=== PATIENT | male | born 2000 | race Caucasian/White ===

== ENCOUNTER 2018-01-13 18:27 | Inpatient (IN) | payer BC ==
[~2018-01-13 18:27] MED LIST: ISOVUE-370 76%-LOCM 1 ML ONE
[2018-01-13] MEDS ORDERED: Fentanyl 100 MCG/2 ML VIAL ONE (18:53)
[2018-01-13] MEDS ORDERED: Adacel (T-DAP) 0.5 ML VIAL ONE (18:53)
[2018-01-13] MEDS ORDERED: CEFAZOLIN/Water 2 GM/20 ML SYRINGE SLOW IVP SCH (19:00)
[2018-01-13 19:07] LABS: #Eosinphils 0.1 thou/uL (0.0-0.7); #Lymphocytes 2.7 thou/uL (1.20-3.40); #Monocytes 0.5 thou/uL (0.11-0.59); #Neutrophils 11.7 thou/uL (1.40-6.50); %Basophils 0.1 % (0.0-1.0); %Eosinophils 0.8 % (0.0-10.0); %Monocytes 3.1 % (0.0-4.0); Hemoglobin 14.4 g/dL (14.0-18.0); Mean Corpuscular HGB CONC 35.3 g/dL (32.0-36.0); Mean Corpuscular Hemoglobin 31.5 pg (25.0-35.0); Mean Corpuscular Volume 89.3 fL (78.0-98.0); Mean Platelet Volume 6.9 fL (7.4-10.4); Platelet Count 253 thou/uL (130-400); RBC Distribution Width 11.3 % (11.5-14.5); Red Blood Cell (RBC) Count 4.57 mill/uL (4.00-5.20)
[2018-01-13 19:15] LABS: INR-International Normal Ratio 1.3; PTT 20.6 SEC (22.9-36.1); Prothrombin Time 15.9 SEC (12.0-14.7)
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
[2018-01-13 19:29] LABS: ALT (SGPT) 72 U/L (8-55); AST (SGOT) 94 U/L (10-45); Albumin 4.1 g/dL (3.5-5.0); Alkaline Phosphatase 71 U/L (Less than 750); Anion Gap 13 mmol/L (10-20); BUN (Urea Nitrogen) 14 mg/dL (8.4-21.0); Bilirubin, Total 0.9 mg/dL (0.2-1.2); Calc. Creatinine Clearance 0 mL/min (70-130); Carbon Dioxide 24 mmol/L (22-29); Chloride 109 mmol/L (98-107); Estimated GFR-MDRD Greater than 90; Globulin 2.4 g/dL (2.4-3.5); Glucose 113 mg/dL (70-105); Lipase 57 U/L (8-78); Protein, Total 6.5 g/dL (6.0-8.3); Sodium 142 mmol/L (136-145)
[2018-01-13] MEDS ORDERED: HYDROmorphone 0.5 MG/0.5 ML SYRINGE ONE (19:33)
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
[2018-01-13] MEDS ORDERED: Lidocaine 1% w/Epinephrine 1:100K 20 ML VIAL ONE (20:08)
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
[2018-01-13] MEDS ORDERED: Ondansetron HCl/PF 4 MG/2 ML Vial ONE (20:24)
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
[2018-01-13] MEDS ORDERED: Dextrose 50% Abboject 50 ML SYRINGE SLOW IVP PRN (20:27)
[2018-01-13] MEDS ORDERED: Ondansetron HCl/PF 4 MG/2 ML Vial IVP PRN (20:27)
[2018-01-13] MEDS ORDERED: Dextrose 5% in Water 1,000 ML IV PRN (20:27)
[2018-01-13] MEDS ORDERED: Promethazine HCl 25 MG/ML VIAL IM PRN (20:27)
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
[2018-01-13] MEDS ORDERED: Acetaminophen 1,000 MG in Premix Bag 1 BAG IVPB SCH (21:00)
[2018-01-13 23:35] LABS: Lactic Acid 3.3 mmol/L (0.5-2.2)
[2018-01-14] MEDS: Sodium Chloride 0.9% 1,000 ML IV SCH ×4 (00:12→15:52)
[2018-01-14] MEDS: Morphine 4 MG/ML VIAL SLOW IVP PRN ×5 (00:16→21:30)
[2018-01-14] MEDS: Ketorolac Tromethamine 30 MG/ML VIAL IVP SCH ×4 (00:16→18:06)
[2018-01-14] MEDS: Famotidine/PF 20 mg/2ml Vial SLOW IVP SCH ×3 (00:16→20:46)
[2018-01-14 01:22] VITALS: BMI 21.5
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
[2018-01-14 06:19] LABS: #Lymphocytes 1.4 thou/uL (1.20-3.40); #Monocytes 0.6 thou/uL (0.11-0.59); #Neutrophils 5.6 thou/uL (1.40-6.50); %Basophils 0.1 % (0.0-1.0); %Eosinophils 0.3 % (0.0-10.0); %Lymphocytes 18.4 % (28.0-48.0); %Monocytes 8.1 % (0.0-4.0); %Neutrophils 73.1 % (31.0-61.0); Hemoglobin 11.8 g/dL (14.0-18.0); Mean Corpuscular HGB CONC 35.2 g/dL (32.0-36.0); Mean Corpuscular Hemoglobin 31.4 pg (25.0-35.0); Mean Corpuscular Volume 89.3 fL (78.0-98.0); Mean Platelet Volume 6.9 fL (7.4-10.4); Platelet Count 181 thou/uL (130-400); RBC Distribution Width 11.3 % (11.5-14.5); Red Blood Cell (RBC) Count 3.75 mill/uL (4.00-5.20); White Blood Cell (WBC) Count 7.6 thou/uL (4.8-10.8)
[2018-01-14 06:35] LABS: ALT (SGPT) 57 U/L (8-55); AST (SGOT) 59 U/L (10-45); Albumin 3.4 g/dL (3.5-5.0); Alkaline Phosphatase 49 U/L (Less than 750); Anion Gap 11 mmol/L (10-20); BUN (Urea Nitrogen) 13 mg/dL (8.4-21.0); Calc. Creatinine Clearance 166 mL/min (70-130); Calcium 8.4 mg/dL (7.8-10.44); Carbon Dioxide 23 mmol/L (22-29); Chloride 110 mmol/L (98-107); Estimated GFR-MDRD Greater than 90; Globulin 1.8 g/dL (2.4-3.5); Glucose 101 mg/dL (70-105); Potassium 4.3 mmol/L (3.5-5.1); Protein, Total 5.2 g/dL (6.0-8.3); Sodium 140 mmol/L (136-145)
--- NOTE | 2018-01-14 08:51 | RAD ---
CHEST 1 VIEW: HISTORY: Pneumothorax. Followup. COMPARISON: 01/13/2018. FINDINGS: Cardiac silhouette is magnified by projection. Pulmonary vasculature upper limits of normal. Medias tinum is midline. No lobar consolidation. No pneumothorax is visible. Left clavicular fracture. IMPRESSION: No significant pneumothorax apparent. Stable posttraumatic appearance of the chest. POS: [facility]
[2018-01-14] MEDS ORDERED: CEFAZOLIN/Water 2 GM/20 ML SYRINGE ONE (09:23)
[2018-01-14] MEDS ORDERED: Midazolam HCl 2 mg/2 ml Vial ONE (10:07)
[2018-01-14] MEDS ORDERED: Fentanyl 100 MCG/2 ML VIAL ONE ×3 (10:19→13:21)
[2018-01-14] MEDS ORDERED: CEFAZOLIN/Water 2 GM/20 ML SYRINGE SLOW IVP SCH (11:00)
[2018-01-14] MEDS ORDERED: PROPOFOL 200 MG/20 ML VIAL ONE (13:21)
[2018-01-14] MEDS ORDERED: Ondansetron HCl/PF 4 MG/2 ML Vial ONE (13:21)
[2018-01-14] MEDS ORDERED: Lidocaine 1% PF 5 ML VIAL ONE (13:21)
[2018-01-14] MEDS ORDERED: PHENYLEPHRINE-NS 100 MCG/ML 10 ML SYRINGE ONE (13:21)
[2018-01-14] MEDS ORDERED: Promethazine HCl 25 MG/ML VIAL SLOW IVP PRN (14:27)
[2018-01-14] MEDS ORDERED: Promethazine HCl 25 MG/ML VIAL IM PRN (14:27)
[2018-01-14] MEDS ORDERED: Ondansetron HCl/PF 4 MG/2 ML Vial IVP PRN (14:27)
[2018-01-14] MEDS ORDERED: Meperidine HCl/PF 25 MG/ML VIAL ONE (14:37)
[2018-01-14] MEDS ORDERED: Acetaminophen/Codeine 30-300mg Tablet PO PRN ×2 (15:06)
[2018-01-14] MEDS: CEFAZOLIN/Water 2 GM/20 ML SYRINGE SLOW IVP SCH (18:07)
--- NOTE | 2018-01-14 18:58 | RAD ---
INTRAOPERATIVE IMAGING OF THE LEFT HUMERUS; 8 COMPARISON: 01/13/18 HISTORY: ORIF. FINDINGS: There is postoperative hardware treating the previously noted fractures involving the mid shaft left humerus, the distal left humerus, and the proximal left ulna. There is anatomic alignment of the frac ture sites. IMPRESSION: ORIF as above. POS: [facility]
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
[2018-01-15] MEDS: Ketorolac Tromethamine 30 MG/ML VIAL IVP SCH ×2 (00:11→06:17)
[2018-01-15] MEDS: CEFAZOLIN/Water 2 GM/20 ML SYRINGE SLOW IVP SCH (02:50)
[2018-01-15 05:24] LABS: #Eosinphils 0.1 thou/uL (0.0-0.7); #Lymphocytes 1.3 thou/uL (1.20-3.40); #Monocytes 0.4 thou/uL (0.11-0.59); %Basophils 0.3 % (0.0-1.0); %Eosinophils 1.3 % (0.0-10.0); %Lymphocytes 22.3 % (28.0-48.0); %Monocytes 7.1 % (0.0-4.0); %Neutrophils 69.1 % (31.0-61.0); Hemoglobin 8.7 g/dL (14.0-18.0); Mean Corpuscular HGB CONC 35.5 g/dL (32.0-36.0); Mean Corpuscular Hemoglobin 31.3 pg (25.0-35.0); Mean Corpuscular Volume 88.1 fL (78.0-98.0); Mean Platelet Volume 6.8 fL (7.4-10.4); Platelet Count 134 thou/uL (130-400); RBC Distribution Width 11.1 % (11.5-14.5); Red Blood Cell (RBC) Count 2.77 mill/uL (4.00-5.20); White Blood Cell (WBC) Count 5.8 thou/uL (4.8-10.8)
[2018-01-15] MEDS: Morphine 4 MG/ML VIAL SLOW IVP PRN (07:33)
[2018-01-15] MEDS: Sodium Chloride 0.9% 1,000 ML IV SCH (07:39)
[2018-01-15] MEDS: Famotidine/PF 20 mg/2ml Vial SLOW IVP SCH (08:59)
[2018-01-15] MEDS: Ibuprofen 800 MG TAB PO SCH ×2 (11:39→17:56)
[2018-01-15] MEDS: Acetaminophen 500 MG TAB PO SCH ×4 (11:39→22:10)
[2018-01-15] MEDS: traMADol HCl 50 MG TAB PO PRN (11:39)
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
[2018-01-15] MEDS: Gabapentin 300 MG CAP PO SCH (20:27)
[2018-01-15] MEDS ORDERED: Famotidine 20 MG TAB PO SCH (21:00)
[2018-01-16] MEDS: Ibuprofen 800 MG TAB PO SCH ×3 (02:15→17:25)
[2018-01-16] MEDS: Acetaminophen 500 MG TAB PO SCH ×6 (02:15→22:30)
[2018-01-16] MEDS: Senokot 8.6 MG TAB PO SCH (08:42)
[2018-01-16] MEDS: Docusate 100 MG CAP PO SCH (08:42)
[2018-01-16] MEDS: Gabapentin 300 MG CAP PO SCH ×2 (08:43→20:54)
[2018-01-16] MEDS: traMADol HCl 50 MG TAB PO PRN ×3 (08:44→20:54)
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
[2018-01-16] MEDS: Enoxaparin Sodium 40 MG/0.4 ML SYRINGE SC SCH (09:59)
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
[2018-01-17] MEDS: Acetaminophen 500 MG TAB PO SCH ×6 (02:35→20:55)
[2018-01-17] MEDS: Ibuprofen 800 MG TAB PO SCH ×3 (02:35→18:35)
[2018-01-17 05:57] LABS: #Eosinphils 0.1 thou/uL (0.0-0.7); #Lymphocytes 1.4 thou/uL (1.20-3.40); #Monocytes 0.3 thou/uL (0.11-0.59); #Neutrophils 2.3 thou/uL (1.40-6.50); %Basophils 0.6 % (0.0-1.0); %Eosinophils 2.2 % (0.0-10.0); %Lymphocytes 34.6 % (28.0-48.0); %Monocytes 6.8 % (0.0-4.0); %Neutrophils 55.8 % (31.0-61.0); Hemoglobin 6.9 g/dL (14.0-18.0); Mean Corpuscular HGB CONC 35.6 g/dL (32.0-36.0); Mean Corpuscular Hemoglobin 32.1 pg (25.0-35.0); Mean Corpuscular Volume 90.3 fL (78.0-98.0); Mean Platelet Volume 7.2 fL (7.4-10.4); Platelet Count 137 thou/uL (130-400); RBC Distribution Width 11.5 % (11.5-14.5); Red Blood Cell (RBC) Count 2.15 mill/uL (4.00-5.20); White Blood Cell (WBC) Count 4.1 thou/uL (4.8-10.8)
[2018-01-17] MEDS: Enoxaparin Sodium 40 MG/0.4 ML SYRINGE SC SCH (08:54)
[2018-01-17] MEDS: Senokot 8.6 MG TAB PO SCH (08:55)
[2018-01-17] MEDS: Ascorbic Acid 500 mg Chewable Tablet PO SCH ×2 (08:55→20:55)
[2018-01-17] MEDS: Gabapentin 300 MG CAP PO SCH ×2 (08:56→20:55)
[2018-01-17] MEDS: Docusate 100 MG CAP PO SCH (08:56)
[2018-01-17] MEDS: Ferrous Sulfate 325 MG TAB PO SCH ×2 (08:56→18:36)
[2018-01-17] MEDS: Polyethylene Glycol 3350 17 GM Packet PO SCH (08:56)
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
[2018-01-18] MEDS: Acetaminophen 500 MG TAB PO SCH ×3 (03:13→10:56)
[2018-01-18] MEDS: Ibuprofen 800 MG TAB PO SCH ×2 (03:13→10:56)
[2018-01-18 05:54] LABS: #Eosinphils 0.1 thou/uL (0.0-0.7); #Lymphocytes 1.3 thou/uL (1.20-3.40); #Monocytes 0.4 thou/uL (0.11-0.59); #Neutrophils 2.8 thou/uL (1.40-6.50); %Basophils 0.1 % (0.0-1.0); %Eosinophils 1.9 % (0.0-10.0); %Lymphocytes 28.8 % (28.0-48.0); %Monocytes 8.8 % (0.0-4.0); %Neutrophils 60.4 % (31.0-61.0); Hemoglobin 7.9 g/dL (14.0-18.0); Mean Corpuscular HGB CONC 34.2 g/dL (32.0-36.0); Mean Corpuscular Hemoglobin 30.9 pg (25.0-35.0); Mean Corpuscular Volume 90.4 fL (78.0-98.0); Mean Platelet Volume 6.7 fL (7.4-10.4); Platelet Count 186 thou/uL (130-400); RBC Distribution Width 11.8 % (11.5-14.5); Red Blood Cell (RBC) Count 2.56 mill/uL (4.00-5.20); White Blood Cell (WBC) Count 4.7 thou/uL (4.8-10.8)
[2018-01-18] MEDS: traMADol HCl 50 MG TAB PO PRN ×2 (09:48→15:05)
[2018-01-18] MEDS: Enoxaparin Sodium 40 MG/0.4 ML SYRINGE SC SCH (09:49)
[2018-01-18] MEDS: Polyethylene Glycol 3350 17 GM Packet PO SCH (09:49)
[2018-01-18] MEDS: Gabapentin 300 MG CAP PO SCH (09:49)
[2018-01-18] MEDS: Docusate 100 MG CAP PO SCH (09:50)
[2018-01-18] MEDS: Ascorbic Acid 500 mg Chewable Tablet PO SCH (09:50)
[2018-01-18] MEDS: Ferrous Sulfate 325 MG TAB PO SCH (09:51)
[2018-01-18] MEDS: Senokot 8.6 MG TAB PO SCH (09:52)
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
[2018-01-18 15:28] VITALS: BP 113/70; TEMP 97.9
== END 2018-01-18 16:15 | DRG 958 ==
LOC: ERS 18:27 → SURG B 22:43
PROVIDERS: ADMIT Surgery; ATTEND Surgery
PROC: 0YQFXZZ Repair Right Knee Region, External Approach (ICD-10-PCS; 2018-01-13)
PROC: 0HQ0XZZ Repair Scalp Skin, External Approach (ICD-10-PCS; 2018-01-13)
PROC: 0PSG04Z Reposition Left Humeral Shaft with Internal Fixation Device, Open Approach (ICD-10-PCS; principal; 2018-01-14)
PROC: 0PSL04Z Reposition Left Ulna with Internal Fixation Device, Open Approach (ICD-10-PCS; 2018-01-14)
PROC: 0PSD04Z Reposition Left Humeral Head with Internal Fixation Device, Open Approach (ICD-10-PCS; 2018-01-14)
DX: S52.202A Unspecified fracture of shaft of left ulna, initial encounter for closed fracture (principal); S06.9X9A Unspecified intracranial injury with loss of consciousness of unspecified duration, initial encounter; S42.352A Displaced comminuted fracture of shaft of humerus, left arm, initial encounter for closed fracture; S32.392A Other fracture of left ilium, initial encounter for closed fracture; S27.322A Contusion of lung, bilateral, initial encounter; J93.9 Pneumothorax, unspecified; D62 Acute posthemorrhagic anemia; S42.002A Fracture of unspecified part of left clavicle, initial encounter for closed fracture; S01.01XA Laceration without foreign body of scalp, initial encounter; S81.011A Laceration without foreign body, right knee, initial encounter; S51.812A Laceration without foreign body of left forearm, initial encounter; S02.2XXA Fracture of nasal bones, initial encounter for closed fracture; S50.02XA Contusion of left elbow, initial encounter; V53.5XXA Driver of pick-up truck or van injured in collision with car, pick-up truck or van in traffic accident, initial encounter
CPT/HCPCS: 36415; 36430; 70450; 71045; 71260; 72125; 72170; 74177; 76001; 80053; 83605; 83690; 85025; 85610; 85730; 86850; 86900; 86901; 90471; 90686; 90715; 93005; 94640; 94760; 96361; 96374; 96375; C1713; G0008; G0390; G8978-GP-CL; G8979-GP-CI; G8987-GO-CL; G8988-GO-CI; J0131; J1170; J1650; J1885; J2001; J2175; J2250; J2270; J2405; J2704; J3010; J7620; P9016; S0028

== ENCOUNTER 2018-04-21 12:02 | Outpatient (CLI) | payer BC ==
--- NOTE | 2018-04-21 14:30 | MRI ---
MRI LEFT KNEE: Date: 04-21-18 Provided Clinical History: Left knee pain status post injury. FINDINGS: The anterior cruciate ligament, medial collateral ligament, lateral collateral ligamentous complex an d extensor mechanism appear intact. There is an abnormal appearance to the posterior aspects of the p roximal tibia in the region of the PCL attachment suggesting ununited PCL avulsion fracture. Partial tearing of the distal TCL is also suspected. The medial and lateral menisci demonstrate no evidence for tear. No focal articular cartilage defect is apparent. There is focal marrow edema at the far posterior aspects of the medial femoral condyle in a juxta-art icular location at the origin of the medial head of the gastrocnemius tendon. There is linear low sig nal intensities within the subjacent bone and apparent cortical disruption, suspicious for partial, i ncompletely united avulsion injury at the site of the medial head gastrocnemius tendon origin. Articular cartilage appears preserved. The amount of fluid within the knee joint appears physiologic. Regional marrow and muscular signal appear otherwise unremarkable. IMPRESSION: 1. 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 2. Findings suspicious for chronic partially united avulsion fracture involving the medial head of th e gastrocnemius tendon origin. 3. CT may be useful for further evaluation of these findings. POS: RIRI
== END 2018-04-21 12:03 | disposition home or self-care (01) ==
LOC: BICMRI 12:02
PROVIDERS: ATTEND Orthopaedic Surgery
DX: S83.512D Sprain of anterior cruciate ligament of left knee, subsequent encounter (principal); S42.492D Other displaced fracture of lower end of left humerus, subsequent encounter for fracture with routine healing

== ENCOUNTER 2018-08-24 09:44 | Day surgery (SDC) | payer BC ==
[2018-08-23 13:05] VITALS: BMI 23.1
[2018-08-24] MEDS ORDERED: Midazolam HCl 2 mg/2 ml Vial ONE (14:23)
[2018-08-24] MEDS ORDERED: Fentanyl 100 MCG/2 ML VIAL ONE ×3 (14:23→17:26)
[2018-08-24] MEDS ORDERED: Bupivacaine HCl 0.5%/Epinephrine 1:200,000/PF 30 ml Vial ONE (14:47)
[2018-08-24] MEDS ORDERED: HYDROmorphone 2 MG/ML VIAL ONE (16:16)
[2018-08-24] MEDS ORDERED: PROPOFOL 200 MG/20 ML VIAL ONE (16:28)
[2018-08-24] MEDS ORDERED: Lidocaine 1% PF 5 ML VIAL ONE (16:28)
[2018-08-24] MEDS ORDERED: Dexamethasone 20 MG/5 ML VIAL ONE (16:28)
[2018-08-24] MEDS ORDERED: Ketorolac Tromethamine 30 MG/ML VIAL ONE (16:28)
[2018-08-24] MEDS ORDERED: Ondansetron PF 4 MG/2 ML Vial ONE (16:28)
[2018-08-24] MEDS ORDERED: HYDROcodone/Acetaminophen 5/325 mg Tablet ONE (18:52)
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
--- NOTE | 2018-08-28 17:59 | RAD ---
TWO VIEWS LEFT ELBOW: HISTORY: Open reduction internal fixation. FINDINGS: Images demonstrate placement of screws and plates across the distal left humeral fracture. Screw also seen in the fractured olecranon. IMPRESSION: Open reduction internal fixation left elbow fractures. Transcribed Date/Time: 08/28/2018 6:28 PM
== END 2018-08-24 20:00 | disposition home or self-care (01) ==
LOC: SDC 09:44
PROVIDERS: ATTEND Orthopaedic Surgery
PROC: 0RPM04Z Removal of Internal Fixation Device from Left Elbow Joint, Open Approach (ICD-10-PCS; principal; 2018-08-24)
PROC: 0RNM0ZZ Release Left Elbow Joint, Open Approach (ICD-10-PCS; principal; 2018-08-24)
PROC: 0PSG04Z Reposition Left Humeral Shaft with Internal Fixation Device, Open Approach (ICD-10-PCS; principal; 2018-08-24)
DX: S42.402D Unspecified fracture of lower end of left humerus, subsequent encounter for fracture with routine healing (principal); S52.022D Displaced fracture of olecranon process without intraarticular extension of left ulna, subsequent encounter for closed fracture with routine healing; T84.84XA Pain due to internal orthopedic prosthetic devices, implants and grafts, initial encounter; M25.622 Stiffness of left elbow, not elsewhere classified; Z79.899 Other long term (current) drug therapy; X58.XXXA Exposure to other specified factors, initial encounter
CPT/HCPCS: 76000; C1713; J0670; J0690; J1100; J1170; J1885; J2001; J2250; J2405; J2704; J3010